=== PATIENT | female | born 1975 | race Caucasian/White ===

== ENCOUNTER 2023-11-21 09:04 | Outpatient (OUT) | payer BC, SELFPAY ==
[2023-11-21 09:24] LABS: Basophils Percent Auto 0.1 % (0.2-2.0); Eosinophils Percent Auto 0.3 % (0.9-7.0); Hematocrit 40.6 % (36.0-48.0); Hemoglobin 13.6 g/dL (12.0-16.0); Immature Granulocytes Abs Auto 0.04 10^3/uL (0.00-0.03); Immature Granulocytes Pct Auto 0.5 % (0.0-0.5); Lymphocytes Absolute Auto 3.1 10^3/uL (1.2-3.8); Lymphocytes Percent Auto 38.5 % (20.5-60.0); Mean Corpuscular HGB Conc 33.5 g/dL (29.9-35.2); Mean Corpuscular Hemoglobin 31.8 pg (26.7-34.0); Mean Corpuscular Volume 94.9 fL (81.0-99.0); Monocytes Absolute Auto 0.5 10^3/uL (0.3-0.8); Neutrophils Absolute Auto 4.4 10^3/uL (1.4-6.5); Neutrophils Percent Auto 54.6 % (43.0-75.0); Platelet Count 389 10^3/uL (150-450); Red Blood Count 4.28 10^6/uL (4.20-5.40); Red Cell Distribution Width 12.3 % (11.0-15.0)
[2023-11-21 09:33] LABS: Estimated Average Glucose 82 mg/dL; Glycohemoglobin A1C 4.5 % (4.5-6.2)
[2023-11-21 10:07] LABS: Alanine Aminotransferase 29 U/L (14-59); Albumin Globulin Ratio 0.9; Albumin Level 3.5 g/dL (3.4-5.0); Alkaline Phosphatase 78 U/L (46-116); Anion Gap 12.2; Aspartate Amino Transferase 27 U/L (15-37); BUN Creatinine Ratio 14.1; Bilirubin Total 0.7 mg/dL (0.2-1.0); Calcium 9.2 mg/dL (8.5-10.1); Carbon Dioxide 27.8 mmol/L (21.0-32.0); Chloride 101 mmol/L (98-107); Chol HDL Ratio 2.6; Cholesterol 201 mg/dL (<=200); Estimated GFR (African America >60 (>=60); Estimated GFR (Non-African Ame >60 (>=60); Free T3 2.04 pg/mL (2.18-3.98); Globulin 3.7 g/dL; Glucose 82 mg/dL (74-106); HDL Cholesterol 76 mg/dL (40-60); Sodium 137 mmol/L (136-145); Thyroid Stimulating Hormone 0.567 uIU/mL (0.358-3.740); Total Protein 7.2 g/dL (6.4-8.2); Triglycerides 75 mg/dL (<=150)
== END 2023-11-21 09:05 | disposition home or self-care (01) ==
PROVIDERS: PCP Family Medicine; Visit Provider Family Medicine
DX: Z00.00 Encounter for general adult medical examination without abnormal findings (principal)
CPT/HCPCS: 36415; 80053; 80061; 83036; 83540; 84436; 84443; 84481; 85025

== ENCOUNTER 2024-08-03 14:19 | Outpatient (RCR) | payer BC, SELFPAY | END 2024-08-24 14:49 | disposition home or self-care (01) | LOC: PT 14:19 | PROVIDERS: PCP Family Medicine; Visit Provider Family Medicine | DX: M62.838 Other muscle spasm (principal); M79.601 Pain in right arm; R51.9 Headache, unspecified | CPT/HCPCS: 20561; 97033; 97035; 97140; 97161 ==

== ENCOUNTER 2024-12-02 10:24 | Outpatient (RCR) | payer BC, SELFPAY | END 2024-12-10 07:07 | disposition home or self-care (01) | LOC: PT 10:24 | PROVIDERS: PCP Family Medicine; Visit Provider Family Medicine | DX: M54.12 Radiculopathy, cervical region (principal); R51.9 Headache, unspecified | CPT/HCPCS: 20561; 97035; 97140; 97161 ==

== ENCOUNTER 2025-04-19 13:59 | Outpatient (OUT) | payer BC, SELFPAY ==
--- OUTSIDE RECORDS SUMMARY | 2025-04-19 14:06 | XMS_ITS | Clinical Summary ---
Author Organization [facility] Address [address] [place], [place] [id number] Care Team Providers Care Communications Executive Name Role Phone Ken Santacruz MD Primary Care Provider [phone] Allergies No known active allergies Medications venlafaxine ER (EFFEXOR XR) 75 mg 24 hr capsule Take 75 mg by mouth once daily. 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 Last address used for calculation [address] [place], [place] [address]Daniela ARVIZU 10/24/2023 Comments No Sex and Gender Information Value Date Recorded Sex Assigned at Not on file Legal Sex Female 8:31 AM EST Gender Identity Not on file Sexual Orientation Not on file Last Filed Vital Signs Vital Sign Reading Time Taken Comments Blood Pressure 113/65 05/22/2010 4:46 PM EDT Pulse 94 05/22/2010 4:46 PM EDT Temperature 36.7 C (98 F) 05/22/2010 3:59 PM EDT Respiratory Rate 16 05/22/2010 4:46 PM EDT Oxygen Saturation 98% 05/22/2010 4:46 PM EDT Inhaled Oxygen Concentration - - Weight 65.8 kg (145 lb) 05/22/2010 9:37 AM EDT Height 170.2 cm (5' 7 ) 05/10/2010 10:36 AM EDT Body Mass Index 22.71 05/10/2010 10:36 AM EDT Plan of Treatment Health Maintenance Due Date Last Done Comments Anxiety Screening 1995 Depression Screening 1995 HIV Screening 1995 Hepatitis C Screening 1995 DTaP,Tdap,Td Vaccine (1 - Tdap) 1996 Hepatitis B Vaccine (1 of 3 - 19+ 3-dose series) 05/21 Cervical Cancer Screening [address] Colonography 2022 Cologuard (FIT-DNA) 2022 Colonoscopy 2022 Colorectal Cancer Screening 2022 Diabetes Screening 2022 Fecal Occult Blood 2022 Lipid Screening 2022 Sigmoidoscopy 2022 Influenza Vaccine (#1) 2025 07/18/2021 Medical Devices Implanted Type Area [employer] Programmer Device Identifier Shelf Expiration Date Model / Serial / Lot Mamm Style 15 339 Cc - [id number] Implanted:Qty : 1 on 05/22/2010 at [facility] Mammary / Breast Right: Breast [employer] BREAST DIV 02/19/2015 [id number] / [id number] / [id number] Description:[employer]LE [employer] E-FILLED BREAST IMPLANT STYLE 15, 339CC Mamm Style 15 339 Cc - [id number] Implanted:Qty : 1 on 05/22/2010 at [facility] Mammary / Breast Left: Breast [employer] BREAST DIV 02/19/2015 [id number] / [id number] / [id number] Description:[employer] E-FILLED BREAST IMPLANT STYLE 15, 339CC Insurance BLUE CARD PPO OOS Care Teams Communications Executive Relationship Specialty Start Date End Date Ken Santacruz MD PCP - General 04/23/10
--- OUTSIDE RECORDS SUMMARY | 2025-04-19 14:18 | XMS_ITS | CCD ---
Author Organization [facility] Care Team Providers Care Room Worker Name Role Phone Wili Santacruz MD Primary Care Provider [phone] AMANUEL, DR ROJO Admitting Unavailable KARASIK, DR ROJO Attending Unavailable WEST, DR JOSE ALFREDO Francois Consulting Unavailable HOY, DR RASHEED Primary Care Unavailable HOY, DR RASHEED Admitting Unavailable HOY, DR RASHEED Attending Unavailable HOY, DR RASHEED Consulting Unavailable HOY, DR RASHEED Primary Care Unavailable WEST, DR JOSE ALFREDO Francois Consulting Unavailable HOY, DR RASHEED Attending Unavailable HOY, DR RASHEED Consulting Unavailable HOY, DR RASHEED Primary Care Unavailable HOY, DR RASHEED Admitting Unavailable NEFCY, RAMO Consulting Unavailable HAY, DR SOLOMON Admitting Unavailable HAY, DR SOLOMON Attending Unavailable HOY, DR RASHEED Primary Care Unavailable JADA VIDES Consulting Unavailable KARASIK, DR ROJO Attending Unavailable KARASIK, DR ROJO Consulting Unavailable HOY, DR RASHEED Primary Care Unavailable KARASIK, DR ROJO Admitting Unavailable KARASIK, DR ROJO Attending Unavailable HOY, DR RASHEED Primary Care Unavailable KARGISSELK, DR ROJO Consulting Unavailable KARASIK, DR ROJO Admitting Unavailable WEST, DR JOSE ALFREDO Francois Consulting Unavailable Wili Santacruz Primary Care Physician [phone] Wili Santacruz MD Primary Care Provider [phone] Swapnil Infante Attending Unavailable Wili Santacruz MD Primary Care Provider [phone] Marcy LEHMAN Attending Unavailable WILI SANTACRUZ Primary Care Unavailable Allergies Allergy Classification Reported Allergen(s) Allergy Type Date of Onset Reaction(s) Facility (1 source) Chlorhexidine Drug Allergy 12-15-2013 [facility] Repository Medications Current Medications Medication Drug Class(es) Dates Sig (Normalized) Sig (Original) 24 hr desvenlafaxine succinate 100 mg extended release oral tablet (11 sources) Serotonin and Norepinephrine Reuptake Inhibitor Start: 05-27-2022 take 1 tablet by mouth once daily Pristiq 100 mg Tab-ER 100 mg = 1 tab(s), Oral, Daily, # 30 tab(s), Refills(s) 0 Start Date: 05/27/22 Status: Ordered hydrOXYzine hydrochloride 25 mg oral tablet (1 source) Antihistamine Start: 03-07-2024 End: 03-14-2024 take 1 tablet by mouth four times daily as needed for anxiety hydrOXYzine hydrochloride 25 mg Tab 25 mg = 1 tab(s), Oral, QID, PRN for anxiety, X 7 day(s), # 28 tab(s), Refills(s) 0, Pharmacy: [facility]/pharmacy #[id number], 170, cm, 03/07/24 18:52:00 EDT, Height/Length Dosing, 69, kg, 03/07/24 18:52:00 EDT, Weight Dosing Start Date: 03/07/24 Stop Date: 03/14/24 Status: Ordered ibuprofen 200 mg oral capsule (11 sources) Nonsteroidal Anti-inflammatory Drug Start: 05-27-2022 take 3 capsules by mouth three times daily ibuprofen 200 mg oral capsule See Instructions, 3 capsules three times daily, Refills(s) 0 Start Date: 05/27/22 Status: Ordered LORazepam 0.5 mg oral tablet (1 source) Benzodiazepine Start: 03-07-2024 End: 03-10-2024 take 0.25 mg by mouth twice daily LORazepam 0.5 mg Tab 0.25 mg = 0.5 tab(s), Oral, BID, X 3 day(s), # 3 tab(s), Refills(s) 0, Pharmacy: [facility]/pharmacy #[id number], 170, cm, 03/07/24 18:52:00 EDT, Height/Length Dosing, 69, kg, 03/07/24 18:52:00 EDT, Weight Dosing Start Date: 03/07/24 Stop Date: 03/10/24 Status: Ordered methocarbamol 500 mg oral tablet (6 sources) Muscle Relaxant Start: 11-04-2022 take 1 tablet by mouth three times daily as needed for pain methocarbamol 500 mg Tab 500 mg = 1 tab(s), Oral, TID, PRN as needed for pain, # 21 tab(s), Refills(s) 0, Pharmacy: [facility]/pharmacy #[id number], 170, cm, 11/04/22 7:51:00 EDT, Height/Length Dosing, 68, kg, 09/24/22 15:22:00 EST, Weight Dosing Start Date: 11/04/22 Status: Ordered Start: 09-03-2022 take 1 tablet by joan th three times daily as needed for pain methocarbamol 500 mg Tab 500 mg = 1 tab(s), Oral, TID, PRN as needed for pain, # 21 tab(s), Refills(s) 0, Pharmacy: [facility]/pharmacy #[id number], 170, cm, 09/03/22 8:26:00 EST, Height/Length Dosing, 67, kg, 07/22/22 13:16:00 EST, Weight Dosing Start Date: 09/03/22 Status: Ordered Start: 08-09-2022 take 1 tablet by joan th three times daily as needed for pain methocarbamol 500 mg Tab 500 mg = 1 tab(s), Oral, TID, PRN as needed for pain, # 21 tab(s), Refills(s) 0, Pharmacy: [facility]/pharmacy #[id number], 170, cm, 08/06/22 12:34:00 EST, Height/Length Dosing, 67, kg, 07/22/22 13:16:00 EST, Weight Dosing Start Date: 08/09/22 Status: Ordered 24 hr venlafaxine 75 mg extended release oral capsule (4 sources) Serotonin and Norepinephrine Reuptake Inhibitor take 1 capsule by mouth once daily venlafaxine ER (EFFEXOR XR) 75 mg 24 hr capsule Take 75 mg by mouth once daily. Active Comment on above: Take 75 mg by mouth once daily. Problems Active Problems Problem Classification Problem Date Documented Date Episodic/Chronic Anxiety disorders (13 sources) Anxiety; Translations: [Panic disorder without agoraphobia] Onset: 03-07-2024 05-27-2022 Chronic Headache; including migraine (11 sources) Migraine 05-27-2022 Chronic Headache; including migraine (4 sources) Headache; including migraine; Translations: [HEADACHE UNSPECIFIED] Onset: 05-08-2022 Heart valve disorders (11 sources) Mitral valve prolapse 05-27-2022 Chronic Malaise and fatigue (11 sources) Fatigue 05-27-2022 Episodic Other non-traumatic joint disorders (11 sources) Shoulder pain 05-27-2022 Episodic Other skin disorders (8 sources) Wrinkled skin; Translations: [Other specified disorders of the skin and subcutaneous tissue] Onset: 11-11-2014 Episodic Other upper respiratory disease (11 sources) Deviated nasal septum 05-27-2022 Episodic Residual codes; unclassified (1 source) Procedure related finding; Translations: [Encounter for cosmetic surgery] Episodic Residual codes; unclassified (11 sources) Insomnia 05-27-2022 Episodic Residual codes; unclassified (3 sources) Patient encounter status; Translations: [Encounter for cosmetic surgery] Episodic Residual codes; unclassified (1 source) Encounter for cosmetic surgery; Translations: [Encounter for cosmetic surgery] Onset: 12-27-2024 Episodic Spondylosis; intervertebral disc disorders; other back problems (11 sources) Degeneration of lumbar intervertebral disc 05-27-2022 Chronic Spondylosis; intervertebral disc disorders; other back problems (20 sources) Radiculopathy, cervical region; Translations: [Cervicalgia] Onset: 05-17-2022 Episodic Unclassified (3 sources) CONTACT W/AND (SUSP) EXPOS COVID-19; Translations: [CONTACT W/AND (SUSP) EXPOS COVID-19] Onset: 07-07-2021 Past or Other Problems Problem Classification Problem Date Documented Date Episodic/Chronic Abdominal pain (4 sources) Pelvic and perineal pain; Translations: [PELVIC AND PERINEAL PAIN] Onset: 11-12-2021 Episodic Immunizations and screening for infectious disease (1 source) Encounter for screening for human papillomavirus (HPV); Translations: [ENC SCREENING HUMAN PAPILLOMAVIRUS] Onset: 11-07-2021 Episodic Nonmalignant breast conditions (4 sources) Congenital hypoplasia of breast; Translations: [Hypoplasia of breast] Onset: 05-02-2010 05-02-2010 Episodic Other screening for suspected conditions (not mental disorders or infectious disease) (8 sources) Encounter for screening mammogram for malignant neoplasm of breast; Translations: [Encounter for screening for malignant neoplasm of cervix] Onset: 11-06-2021 Episodic Other skin disorders (1 source) Other specified disorders of the skin and subcutaneous tissue; Translations: [Wrinkles] Onset: 11-11-2014 Episodic Ovarian cyst (1 source) Other ovarian cyst, right side; Translations: [OTHER OVARIAN CYST RIGHT SIDE] Onset: 11-15-2021 Episodic Residual codes; unclassified (4 sources) History of cosmetic plastic surgery; Translations: [Other specified postprocedural states] Onset: 05-31-2010 05-31-2010 Episodic Unclassified (1 source) CONTACT W/AND (SUSP) EXPOS COVID-19; Translations: [CONTACT W/AND (SUSP) EXPOS COVID-19] Onset: 07-04-2021 Results Test Name Value Interpretation Reference Range Facility CNOVon 12-27-2024 CNOV Office Visit (PLASAV ) WOJCIECHFAMILIA Elena ([id number]) 1975 F Date Time Provider Department 12/27/24 10:00 AM Marcy LEHMAN During your visit today, we recorded the following information about you: Marcy Lehman MD 12/27/2024 10:20 AM Signed Familia's chief complaint: forehead lines, frown lines, and lines around the eyes. Injection history: repeat patient. I discussed with the patient the treatment procedure, the treatment options, the risk profile, the limited duration and longevity, the difference between botox and fillers. The patient consents to the procedure and wishes to proceed. UNIVERSAL PROTOCOL / SAFETY CHECKLIST Procedure to be Performed: Botox Sign In: A Moment of CARE was completed. Appropriate PPE (Personal Protective Equipment) worn by all providers involved with the procedure. Special equipment not required. Patient/Surrogate Stated/Verified: Patient name, Date of , Relevant allergies, and The intended procedure Time Out: Relevant labs, photos, and/or imaging studies are not applicable. Intended patient and procedure match the source document(s) (e.g. consent, HANDP, associated studies [imaging, pathology]) are not applicable. Consent obtained and matches the intended procedure. Correct side/site has been marked and visible. Medications required for this procedure are verified. Fire risk assessed and is not applicable. Implants: are not applicable. Sign Out: Specimens not collected. All instruments, equipment, possible retained foreign bodies are accounted for. The post-procedure plan of care has been communicated to the patient or surrogate. Today's Treatment: Plan: Botox alone Area: Forehead, Frown lines, and Ronna orbital area - squaxin's feet Dosing: Forehead: 2-4-4-4-2 = 16 units Central forehead 4 units x 1 = 4 units Glabella 4 units x 3 = 12 units CF 4 units x 2 = 8 units Total: 40 units Botox ([id number] EXP 05/2026) Familia tolerated the treatment well, post-treatment instructions given. Follw-up: as needed Charge: $560 jamie rewards: -$100 Total due: $460 (Z41.1) Encounter for cosmetic surgery (primary encounter diagnosis) (L98.8) Wrinkles Allergies As of Date: 12/27/2024 (No Known Allergies) Date Reviewed: 10/24/2023 Reviewed by: Shanta Valdivia RN - Fully Assessed Primary Visit Diagnosis:Encounter for cosmetic surgery [Z41.1] Other Visit Diagnosis:Wrinkles [L98.8] Prescriptions as of 12/27/2024 - venlafaxine ER (EFFEXOR XR) 75 mg 24 hr capsule Take 75 mg by mouth once daily. 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 She states that she was on her way to work when she noted that she started to have an anxiety attack. She states that she has had these in the past and this feels exactly like it in the past. She states that she started get some shortness of breath and had difficulty breathing which is why she decided to present to the ED. She was unable to drive her car and had to have someone come and pick her up from her family. She denies any chest pain, abdominal pain, nausea, vomiting, diarrhea, fevers, body aches, chills. Review of Systems No other aggravating or relieving factors no other associated symptoms no other prior treatments or complaints. Family: Reviewed and noncontributory Social: lives at home Review of systems negative unless otherwise specified in the HPI. Physical Exam Vitals & Measurements T: 36.5 ?C(Oral) HR: 87(Peripheral) RR: 20 BP: 152/88 SpO2: 98% HT: 170 cm WT: 69 kg BMI: 23.88 General: The patient appears anxious and in acute distress. Patient is resting comfortably on cart. Skin: Warm, dry, no pallor noted. Head: Normocephalic, atraumatic Neck: No JVD Eye: PERRLA, EOMI ENT: Moist mucus membranes Cardiovascular: Regular rate and rhythm. Normal peripheral perfusion Respiratory: CTA bilaterally. No respiratory distress no accessory muscle use no obvious audible wheezing Chest Wall: no deformity Musculoskeletal: normal ROM, no deformity, no swelling GI: Soft no obvious distention. No rebound or rigidity. No guarding. No tenderness. Neurological: A&O moves all extremities equal strength and symmetry Psychiatric: Cooperative and appropriate Medical Decision Making Patient is a 48-year-old female with PMH of anxiety that presents today for evaluation of possible panic attack. She has had these in the past and this feels exactly like it with her shortness of breath and difficulty breathing. On exam patient does appear anxious and in acute distress with tachypnea and tachycardia. CTA bilateral lung natarajan. After dose of Ativan oral in the ED she is feeling much better with almost complete resolution of her symptoms. I did provide her with a dose of hydroxyzine 50 mg here in the ED as well which made her feel increasingly better. I did recommend to the patient that we evaluate with lab work, chest x-ray, and EKG, however, the patient wants to hold off on any further workup at this time. Provided her with to go dose for hydroxyzine as well as Ativan and sent her prescriptions to her pharmacy for these. She will follow-up with her PCP first thing tomorrow for further evaluation and management. Return to ED precautions were reviewed with the patient at length. Assessment/Plan Anxiety (F41.9: Anxiety disorder, unspecified) Panic attack (F41.0: Panic disorder [episodic paroxysmal anxiety]) Orders: hydrOXYzine, 50 mg = 2 tab(s), Tab, Oral, Once, Stop date 03/07/24 19:45:00 EDT, STAT, Start date 03/07/24 19:45:00 EDT, 03/07/24 19:45:00 EDT hydrOXYzine, 25 mg = 1 tab(s), Tab, Oral, Once, Stop date 03/07/24 20:21:00 EDT, STAT, Start date 03/07/24 20:21:00 EDT, 03/07/24 20:21:00 EDT hydrOXYzine, 25 mg = 1 tab(s), Oral, QID, PRN for anxiety, X 7 day(s), # 28 tab(s), Refills(s) 0, Pharmacy: [facility]/pharmacy #[id number], 170, cm, 03/07/24 18:52:00 EDT, Height/Length Dosing, 69, kg, 03/07/24 18:52:00 EDT, Weight Dosing lorazepam, 0.25 mg = 0.5 tab(s), Oral, BID, X 3 day(s), # 3 tab(s), Refills(s) 0, Pharmacy: [facility]/pharmacy #[id number], 170, cm, 03/07/24 18:52:00 EDT, Height/Length Dosing, 69, kg, 03/07/24 18:52:00 EDT, Weight Dosing lorazepam, 0.5 mg = 1 tab(s), Tab, Oral, Once, Stop date 03/07/24 19:07:00 EDT, STAT, Start date 03/07/24 19:07:00 EDT, 03/07/24 19:07:00 EDT lorazepam, 1 mg = 1 tab(s), Tab, Oral, Once, Stop date 03/07/24 20:21:00 EDT, STAT, Start date 03/07/24 20:21:00 EDT, 03/07/24 20:21:00 EDT Medications Administered Given Ativan 0.5 mg Tab, 0.5 mg, Oral hydrOXYzine hydrochloride 25 mg Tab, 25 mg, Oral hydrOXYzine hydrochloride 25 mg Tab, 50 mg, Oral LORazepam 1 mg Tab, 1 mg, Oral Disposition Plan Patient Discharge Condition Stable, improved Discharge Disposition Home Discharge Prescription List Prescriptions hydrOXYzine hydrochloride 25 mg Tab, 25 mg= 1 tab(s), Oral, QID, PRN LORazepam 0.5 mg Tab, 0.25 mg= 0.5 tab(s), Oral, BID Follow-up With When Contact Information Wili Santacruz In 3 days 03/10/2024 EDT [address] [facility] [place] [address]- Business (1) Additional Instructions: Patient Education Panic Attack Attestation Patient seen and evaluated by the physician janitorial assistant. Attending physician was present in the emergency department and supervised care. This visit was performed by both the (more content not included)... Normal [facility] Comment on above: Result Comment: Elec tronically Signed By: Desmond Henley PA-C\.br\Date and Time Signed: 03/07/24 23:48 EDT\.br\Electronically Co-Signed By: Desmond Henley PA-C\.br\Date and Time Co-Signed: 03/07/24 23:49 EDT\.br\Electronically Co-Signed By: Adolfo Milner DO\.br\Date and Time Co-Signed: 03/08/24 02:33 EDT ED Clinical Summaryon 2023 ED Clinical Summary ED Clinical Summary [place] [id number] ED Clinical Summary Person Information Name: FAMILIA JEFFREY [place] Age: 48 Years : 1975 Sex: Female Language: Macanese PCP: Wili Santacruz MD Marital Status: Single Visit Id: Visit Reason: Anxiety; PANIC ATTACK Speciality: Acuity: 2 Enc Type: Emergency Med Service: Emergency Arrival: 03/07/2024 18:37:02 Discharge: 03/07/2024 20:30:55 LOS: 000 01:53 Checkin: 03/07/2024 18:37:02 Checkout: 03/07/2024 20:30:55 Dispo Type: Home (Routine DC) EVENTS: Event Name Event Status Request Date/Time Start Date/Time Complete Date/Time Arrive Complete 03/07/2024 18:37:02 03/07/2024 18:37:02 03/07/2024 18:37:02 Document Home Meds Request 03/07/2024 18:37:02 Triage Complete 03/07/2024 18:37:02 03/07/2024 18:52:00 03/07/2024 18:52:00 Bed Assign Complete 03/07/2024 18:52:28 03/07/2024 18:52:28 03/07/2024 18:52:28 Dr Exam Complete 03/07/2024 18:52:28 03/07/2024 19:01:15 03/07/2024 19:01:15 RN Exam Complete 03/07/2024 18:52:28 03/07/2024 19:48:19 03/07/2024 19:48:19 Registration Complete 03/07/2024 19:01:15 03/07/2024 19:06:29 03/07/2024 19:06:29 Reg Complete Request 03/07/2024 19:06:29 Reg Bed Request Complete 03/07/2024 19:06:29 03/07/2024 19:06:29 03/07/2024 19:06:29 Meds Admin Complete 03/07/2024 19:07:33 03/07/2024 19:10:39 Dr Exam Complete 03/07/2024 19:17:50 03/07/2024 19:17:50 03/07/2024 19:17:50 Registration Request 03/07/2024 19:17:50 Meds Admin Complete 03/07/2024 19:46:04 03/07/2024 19:49:29 Meds Admin Complete 03/07/2024 20:21:38 03/07/2024 20:30:06 Discharge Complete 03/07/2024 20:23:38 03/07/2024 20:30:59 03/07/2024 20:30:59 Transfer Complete 03/07/2024 20:30:59 03/07/2024 20:30:59 03/07/2024 20:30:59 ADDRESS: [place] [facility] [id number] PHYS DOC NOTES: MEDICAL INFORMATION: Prescriptions Given: New Medications [id number], [address] [place], [place] [id number], [phone] hydrOXYzine (hydrOXYzine hydrochloride 25 mg Tab) 1 Tablets By Mouth 4 times a day as needed for anxiety for 7 Days. Refills: 0. lorazepam (LORazepam 0.5 mg Tab) 0.5 Tablets By Mouth 2 times a day for 3 Days. Refills: 0. Medications to Continue with No Changes Other Medications desvenlafaxine (Pristiq 100 mg Tab-ER) 1 Tablets By Mouth every day. ibuprofen (ibuprofen 200 mg oral capsule) 3 capsules three times daily. methocarbamol (methocarbamol 500 mg Tab) 1 Tablets By Mouth 3 times a day as needed as needed for pain. Refills: 0. PATIENT EDUCATION INFORMATION: Instructions: Panic Attack Follow up: With: Address: When: Wili Santacruz [address] [place] [address], [facility] [place] [address] Business (1) In 3 days 03/10/2024 DIAGNOSIS: Anxiety; Panic attack Normal [facility] ED Patient Summaryon 024 ED Patient Summary ED Patient Summary [address] [address] Patient Discharge Instructions Person Information Name: FAMILIA JEFFREY Age: 48 Years Arrival Date: 03/07/2024 18:37:02 Discharge Diagnosis: Anxiety; Panic attack Primary Care Physician: Wili Santacruz MD Provider Information Primary Provider: Adolfo Milner DO Advanced Paper Core Machine Operator:Desmond Henley PA-C The exam and treatment you received in the Emergency Department were for an urgent problem and are not intended as complete care. It is important that you follow up with a doctor, nurse practitioner, or physician?s janitorial assistant for ongoing care. If your symptoms become worse or you do not improve as expected and you are unable to reach your usual health care provider, you should return to the Emergency Department. We are available 24 hours a day. FAMILIA JEFFREY has been given the following list of patient education materials, prescriptions and follow-up instructions: Follow-up Instructions: With: Address: When: Wili Santacruz [facility], [address] [place] [id number] Business (1) In 3 days 03/10/2024 In the event that this physician does not participate in your insurance network, please consult with your insurance company to find a nearby participating provider. Patient Education Materials: Panic Attack A MESSAGE TO ALL PATIENTS REGARDING OPIOIDS PRESCRIPTION OPIOIDS: WHAT YOU NEED TO KNOW Prescription opioids can be used to help relieve [id number] pain and are often prescribed following a surgery or injury, or for certain health conditions. These medications can be an important part of the treatment but also come with serious risks. It is important to work with your healthcare provider to make sure you are getting the safest, most effective care. WHAT ARE THE RISKS AND SIDE EFFECTS OF OPIOID USE? Prescription opioids carry serious risks of addiction and overdose, especially with prolonged use. An opioid overdose, often marked by slowed breathing, can cause sudden . The use of prescription opioids can have a number of side effects as well, even when taken as directed: ? Tolerance?meaning you might need to take more of the medication for the same pain relief ? Physical dependence?meaning you have symptoms of withdrawal when a medication is stopped ? Increased sensitivity to pain ? Constipation ? Nausea, vomiting, and dry mouth ? Sleepiness and dizziness ? Confusion ? Depression ? Low levels of testosterone that can result in lower sex drive, energy, and strength ? Itching and sweating RISKS ARE GREATER WITH: ? History of drug misuse, substance use disorder, or overdose ? Mental health conditions (such as depression or anxiety) ? Sleep apnea ? Older age (65 years and older) ? Avoid alcohol while taking prescription opioids. Also, unless specifically advised by your health care provider, medications to avoid include: ? Benzodiazepines (such as Xanax or Valium) ? Muscle relaxants (such as Soma or Flexeril) ? Hypnotics (such as Ambien or Lunesta) ? Other prescription opioids KNOW YOUR OPTIONS Talk to your health care provider about ways to manage your pain that don?t involve prescription opioids. Some of these options may actually work better and have fewer risks and side effects. Options may include: ? Pain relievers such as acetaminophen, ibuprofen, and naproxen ? Some medication that are also used for depression or seizures ? Physical therapy and exercise ? Cognitive behavioral therapy, a psychological, goal-directed approach, in which patients learn how to modify physical, behavioral, and emotional triggers of pain and stress. IF YOU ARE PRESCRIBED OPIOIDS FOR PAIN: ? Never take opioids in greater amounts or more often than prescribed. ? Follow up with your primary health care provider. o Work together to create a plan on how to manage your pain. o Talk about ways to help manage your pain that don?t involve prescription opioids. o Talk about any and all concerns and side effects. ? Help prevent misuse and abuse o Never sell or share prescription opioids. o Never use another person?s prescription opioids. ? Store prescription opioids in a secure place and out of reach of others (this may include visitors, children, friends, and family). ? Safely dispose of unused prescription opioids: Find your community drug take-back program or your pharmacy mail-back program, or flush them down the toilet, following guidance from the Food and Drug Administration (www.fda.gov/Drugs/Res ourcesForYou). ? Visit www.cdc.gov/drugoverdo se to learn about the risks of opioids abuse and overdose. ? If you believe you may be struggling with addiction, tell your health point of care technician and ask for guidance or call [employer]?S National Helpline at 0-595-898-QJXN. (more content not included)... Normal [facility] MRI CSPINE WO CONon 05-17-20 MRI CSPINE WO CON EXAMINATION: MRI CSPINE WO CON HISTORY: Neck pain COMPARISON: No relevant comparison available. TECHNIQUE: A variety of imaging planes and parameters were utilized for visualization of suspected pathology. FINDINGS: CRANIOCERVICAL AREA: Normal foramen magnum with no Chiari malformation. PARASPINAL AREA: Normal with no visible mass. BONES: Normal alignment with no acute fracture or spondylolisthesis. No bone edema CORD: Normal caliber, contour, and signal intensity. CERVICAL DISC LEVELS: C2-C3: No significant disc/facet abnormality, spinal stenosis, or foraminal stenosis. C3-C4: Mild diffuse disc/osteophyte complex. No central or foraminal stenosis C4-C5: No significant disc/facet abnormality, spinal stenosis, or foraminal stenosis. C5-C6: Mild to moderate diffuse disc/osteophyte complex. No definite central canal or foraminal stenosis C6-C7: Mild to moderate diffuse disc/osteophyte complex. No definite central canal or foraminal stenosis C7-T1:. Mild posterior disc/osteophyte complex. No definite central or foraminal stenosis IMPRESSION: Mild diffuse degenerative discogenic changes. No definite central or foraminal stenosis Electronically authenticated by: JOSE ALFREDO ROMO Date: 2022-05-17 21:53 Normal [facility] CBC AUTO DIFFon 05-08-2022 BASO # 0.0 103/ul Normal 0.0-0.1 [facility] Comment on above: Performed By: #### C BC #### [facility] [address] [place] [address] Dr. Adis Poe Basophils/100 WBC (Bld) 0.4 % Normal 0.2-2.0 [facility] Comment on above: Performed By: #### C BC #### [facility] [address] [place] [address] Dr. Adis Poe EO # 0.0 103/ul Normal 0.0-0.7 [facility] Comment on above: Performed By: #### C BC #### [facility] [address] [place] [address] Dr. Adis Poe Eosinophils/100 WBC (Bld) 0.3 % Critically low 0.9-7.0 [facility] Comment on above: Performed By: #### C BC #### [facility] [address] [place] [address] Dr. Adis Poe Erythrocyte distribution width (RBC) [Ratio] 12.7 % Normal 11.0-15.0 [facility] Comment on above: Performed By: #### C BC #### [facility] [address] [place] [address] Dr. Adis Poe Hematocrit (Bld) [Volume fraction] 39.4 % Normal 36.0-48.0 [facility] Comment on above: Performed By: #### C BC #### [facility] [address] [place] [address] Dr. Adis Poe Hemoglobin (Bld) [Mass/Vol] 13.4 g/dL Normal 12.0-16.0 [facility] Comment on above: Performed By: #### C BC #### [facility] [address] [place] [address] Dr. Adis Poe IG # 0.03 10e3/ul Normal 0.00-0.03 [facility] Comment on above: Performed By: #### C BC #### [facility] [address] [place] [address] Dr. Adis Poe IG % 0.3 % Normal 0.0-0.5 [facility] Comment on above: Performed By: #### C BC #### [facility] [address] [place] [address] Dr. Adis Poe LYMPH # 2.5 103/ul Normal 1.2-3.8 [facility] Comment on above: Performed By: #### C BC #### [facility] [address] [place] [address] Dr. Adis Poe Lymphocytes/100 WBC (Bld) 25.8 % Normal 20.5-60.0 [facility] Comment on above: Performed By: #### C BC #### [facility] [address] [place] [address] Dr. Adis Poe MANUAL DIFF REQ NO Normal [facility] Comment on above: Performed By: #### C BC #### [facility] [address] [place] [address] Dr. Adis Poe MCH (RBC) [Entitic mass] 32.2 pg Normal 26.7-34.0 [facility] Comment on above: Performed By: #### C BC #### [facility] [address] [place] [address] Dr. Adis Poe MCHC (RBC) [Mass/Vol] 34.0 g/dL Normal 29.9-35.2 [facility] Comment on above: Performed By: #### C BC #### [facility] [address] [address] [address] Adis Poe MCV (RBC) [Entitic vol] 94.7 fL Normal 81.0-99.0 [facility] Comment on above: Performed By: #### C BC #### [facility] [address] [place] [address] Dr. Adis Poe MONO # 0.6 103/ul Normal 0.3-0.8 [facility] Comment on above: Performed By: #### C BC #### [facility] [address] [place] [address] Dr. Adis Poe Monocytes/100 WBC (Bld) 5.7 % Normal 1.7-12.0 [facility] Comment on above: Performed By: #### C BC #### [facility] [address] [place] [address] Dr. Adis Poe NEUT # 6.6 103/ul Critically high 1.4-6.5 [facility] Comment on above: Performed By: #### C BC #### [facility] [address] [place] [address] Dr. Adis Poe Neutrophils/100 WBC (Bld) 67.5 % Normal 43.0-75.0 [facility] Comment on above: Performed By: #### C BC #### [facility] [address] [place] [address] Dr. Adis Poe Platelet mean volume (Bld) [Entitic vol] 8.4 fL Critically low 9.5-13.5 [facility] Comment on above: Performed By: #### C BC #### [facility] [address] [place] [address] Dr. Adis Poe PLT 351 103/ul Normal 150-450 [facility] Comment on above: Performed By: #### C BC #### [facility] [address] [place] [address] Dr. Adis Poe RBC 4.16 106/ul Critically low 4.20-5.40 [facility] Comment on above: Performed By: #### C BC #### [facility] [address] [place] [address] Dr. Adis Poe WBC 9.8 103/ul Normal 4.0-11.0 [facility] Comment on above: Performed By: #### C BC #### [facility] [address] HEAD WO CONon 05-08-2022 CT HEAD WO CON EXAMINATION: CT HEAD WO CON HISTORY: HEADACHE this morning and tingling of the left hand. COMPARISON: None. TECHNIQUE: CT examination of the head without IV contrast. Sagittal and coronal reconstructions were obtained. Dose reduction techniques were achieved by using automated exposure control and/or adjustment of mA and/or kV according to patient size and/or use of iterative reconstruction technique. FINDINGS: The ventricles are not enlarged. The right lateral ventricle slightly larger than the left and the third ventricles in the midline and this may be within normal variation. The sylvian fissures and cortical sulci are unremarkable. There is no evidence of an intracranial hemorrhage, mass lesion or apparent acute infarct. No apparent abnormality is seen in the deep white matter. Benign calcifications are seen in the anterior falx, choroid plexus and pineal complex. The cerebellum and visualized brainstem are intact. The visualized paranasal sinuses are clear. There is good aeration of the middle ears and the mastoid sinuses. There is no apparent skull fracture. IMPRESSION: There is no evidence of an intracranial hemorrhage, mass lesion or apparent acute infarct. There is some asymmetry of the lateral ventricles in comparison with a previous study is recommended to verify stability of these findings. The visualized paranasal sinuses are clear. There is no evidence of a skull fracture. If the patient's symptoms persist and further evaluation is clinically indicated then perhaps an MRI study would be helpful. Electronically authenticated by: RAMO EVANGELISTA Date: 2022-05-08 19:35 Normal [facility] PROF CHEM 8 (BAS METB)on Anion gap [Moles/Vol] 12.3 mmol/L Normal [facility] Comment on above: Performed By: #### B GAGE FULLERTRDANIELAN #### [facility] [address] [address] [address] Adis Poe Calcium [Mass/Vol] 9.1 mg/dL Normal 8.5-10.1 [facility] Comment on above: Performed By: #### B JONNY HSTROPN #### [facility] [address] [address] [address] Adis Poe Chloride [Moles/Vol] 104 mmol/L Normal 98-107 [facility] Comment on above: Performed By: #### B MP, HSTROPN #### [facility] [address] [address] [address] Adis Poe CO2 [Moles/Vol] 25.2 mmol/L Normal 21.0-32.0 [facility] Comment on above: Performed By: #### B MP, HSTROPN #### [facility] [address] [address] [address] Adis Poe Creatinine [Mass/Vol] 0.86 mg/dL Normal 0.55-1.02 [facility] Comment on above: Performed By: #### B MP, HSTROPN #### [facility] [address] [address] [address] Adis Poe EGFR-AF JAPANESE >60 Normal >=60 [facility] Comment on above: Performed By: #### B MP, HSTROPN #### [facility] [address] [address] [address] Adis Poe EGFR-NON AF JAPANESE >60 Normal >=60 [facility] Comment on above: Performed By: #### B MP, HSTROPN #### [facility] [address] [address] [address] Adis Poe Glucose [Mass/Vol] 86 mg/dL Normal 74-106 [facility] Comment on above: Performed By: #### B MP, HSTROPN #### [facility] [address] [address] [address] Adis Poe Potassium [Moles/Vol] 3.5 mmol/L Normal 3.5-5.1 [facility] Comment on above: Performed By: #### B MP, HSTROPN #### [facility] [address] [address] [address] Adis Poe Sodium [Moles/Vol] 138 mmol/L Normal 136-145 [facility] Comment on above: Performed By: #### B MP, HSTROPN #### [facility] [address] [address] [address] Adis Poe Urea nitrogen [Mass/Vol] 16.0 mg/dL Normal 7.0-18.0 [facility] Comment on above: Performed By: #### B MP, HSTROPN #### [facility] [address] [address] [address] Adis Poe Urea nitrogen/Creatinine [Mass ratio] 18.6 mg/mg Normal [facility] Comment on above: Performed By: #### B MP, HSTROPN #### [facility] [address] [address] [address] Adis Poe TROPONIN, HIGH SENSITIVITYon 05-08-2022 HSTROP 4.0 pg/mL Normal 4.0-51.3 [facility] Comment on above: Result Comment: CUT- OFF POINTS HAVE BEEN ESTABLISHED BASED ON THE FOURTH UNIVERSAL DEFINITIONS OF MYOCARDIAL INFARCTION. THE UPPER REFERENCE LIMIT (URL) OF TROPONIN, DEFINED THE 99TH PERCENTILE OF cTnI DISTRIBUTION IN A REFERENCE POPULATION, HAS BEEN CONFIRMED THE DECISION THRESHOLD FOR [place] DIAGNOSIS. Performed By: #### B MP, HSTROPN #### [facility] [address] [place] [address] Dr. Adis Poe MG MAMM SCREEN 3D LY CADon 11-16-2021 MG MAMM SCREEN 3D LY CAD Patient: FAMILIA JEFFREY Exam Date: 11/16/2021 : 1975 Gender:F Ordering : DR ALIA VITAL . Admission #: [id number] Family : Order #: [id number] CLICK HERE TO VIEW EXAM RADIOLOGY REPORT PROCEDURE: MAMMOGRAM SCREENING 3D BILATERAL CAD COMPARISON: None. INDICATIONS: Screening mammography Calculator Name NCI Breast Cancer Risk Assessment Tool 5 Year Breast Cancer Risk 0.60% Lifetime Breast Cancer Risk 8.00% Personal Breast Cancer No Personal Ovarian Cancer No Treatments None Family Cancers None LOCATION: [facility] BREAST COMPOSITION: Scattered areas fibroglandular density. FINDINGS: DIAGNOSTIC CATEGORY 2--BENIGN FINDING: Scattered benign-appearing calcifications are present. Scattered benign-appearing lymph nodes are present. This exam includes additional mammographic views for implant evaluation and shows no visible implant abnormality. RIGHT BREAST: No significant suspicious finding. LEFT BREAST: No significant suspicious finding. RECOMMENDATIONS: ROUTINE MAMMOGRAM AND CLINICAL EVALUATION IN 12 MONTHS. PLEASE NOTE: A NORMAL MAMMOGRAM DOES NOT EXCLUDE THE POSSIBILITY OF BREAST CANCER. A CLINICALLY SUSPICIOUS PALPABLE LUMP SHOULD BE BIOPSIED. Dictated by: Jose Alfredo Rmoo MD on 11/16/2021 at 14:02 Approved by: Jose Alfredo Romo MD on 11/16/2021 at 14:03 Normal [facility] US PELVIS AND TRANSVAGon US PELVIS AND TRANSVAG EXAMINATION: US PELVIS AND TRANSVAG HISTORY: Pelvic and perineal pain COMPARISON: 10/27/2019 FINDINGS: Transabdominal and transvaginal images The uterus is surgically absent The right ovary is normal in size, contour and echotexture measuring 2.2 x 2.3 x 1.9 cm. Normal color Doppler flow. PSV/EDV: 7.1/3.3 cm/s Normal resistive index of 0.53. The left ovary measures 3.6 x 3.7 x 2.5 cm. Area of anechoic echogenicity measuring 3.0 x 3.1 x 2.5 cm, a simple cyst is favored. PSV/EDV: 6.0/3.6 cm/s. Normal color and Doppler flow. No free fluid IMPRESSION: 3.1 cm left ovarian simple cyst Electronically authenticated by: JOSE ALFREDO ROMO Date: 2021-11-12 10:21 [facility] PAP ACOG PANEL 2: 30 to 65on 11-10-2021 . . Normal [facility] Comment on above: Result Comment: Perf ormed at: WB Performed By: #### [id number] #### [facility] [address] [address] [address] Adis Poe Age Gdln ACOG Testing 30-65 Normal [facility] Comment on above: Performed By: #### [id number] #### [facility] [address] [address] [address] Adis Poe DIAGNOSIS: Comment Normal [facility] Comment on above: Result Comment: NEGA TIVE FOR INTRAEPITHELIAL LESION OR MALIGNANCY. Performed at: WB Performed By: #### [id number] #### [facility] [address] [place] [address] Dr. Adis Poe HPV Aptima Negative Normal Negative [facility] Comment on above: Result Comment: This nucleic acid amplification test detects fourteen high-risk HPV types (16,18,31,33,35,39,45,51,52,56,58,59,66,68) without differentiation. Performed at: =G Performed By: #### [id number] #### [facility] [address] [address] [address] Adis Poe Methodology: Comment Normal [facility] Comment on above: Result Comment: This liquid based ThinPrep(R) pap test was screened with the use of an image guided system. Performed at: WB Performed By: #### [id number] #### [facility] [address] [place] [address] Dr. Adis Poe Note: Comment Normal [facility] Comment on above: Result Comment: The Pap smear is a screening test designed to aid in the detection of premalignant and malignant conditions of the uterine cervix. It is not a diagnostic procedure and should not be used as the sole means of detecting cervical cancer. Both false-positive and false-negative reports do occur. . Performed at: WB Performed By: #### [id number] #### [facility] [address] [place] [address] Dr. Adis Poe Performed by: Comment Normal [facility] Comment on above: Result Comment: Carola Pham, Shift Nurse Manager (ASCP) Performed at: WB Performed By: #### [id number] #### [facility] [address] [place] [address] Dr. Adis Poe Specimen adequacy: Comment Normal [facility] Comment on above: Result Comment: Sati sfactory for evaluation. No endocervical component is identified. Performed at: WB Performed By: #### [id number] #### [facility] [address] [place] [address] Dr. Adis Poe Covid-19 PCR ([facility])on 06-25 SARS-CoV-2 (COVID-19) RNA MARIANO+probe Ql (Unsp spec) Not detected Normal NOT DETECTED [facility] Comment on above: Result Comment: This test is not yet approved or cleared by the [place] FDA. When there are no FDA-approved or cleared tests available, and other criteria are met, FDA can make tests available under an emergency access mechanism called an Emergency Use Authorization (EUA). The EUA for this test is supported by the Recreation Supervisor of Health and Human Service's (HHS's) declaration that circumstances exist to justify the emergency use of in vitro diagnostics for the detection and/or diagnosis of the virus that causes COVID-19. This EUA will remain in effect (meaning this test can be used) for the duration of the COVID-19 declaration justifying emergency of IVDs, unless it is terminated or revoked by FDA (after which the test may no longer be used). When diagnostic testing is negative, the possibility of a false negative should be considered in the context of a patient's recent exposures and the presence of clinical signs and symptoms consistent with SARS-CoV-2. Performed By: #### C [facility] #### [facility] [address] [place] [address] Dr. Adis Poe Vital Signs Date Time Vital Sign Value Performing Clinician Faci lity 03-07-2024 20:30-0400 Diastolic blood pressure 85 mm[Hg] [facility] 03-07-2024 20:30-0400 Systolic blood pressure 146 mm[Hg] [facility] 03-07-2024 19:48-0400 Body temperature 97.7 [degF] [facility] 03-07-2024 19:48-0400 Diastolic blood pressure 88 mm[Hg] [facility] 03-07-2024 19:48-0400 Heart rate 87 /min [facility] 03-07-2024 19:48-0400 Respiratory rate 20 /min [facility] 03-07-2024 19:48-0400 SaO2% (BldA) [Mass fraction] 98 % [facility] 03-07-2024 19:48-0400 Systolic blood pressure 152 mm[Hg] [facility] 03-07-2024 18:49-0400 Body temperature 98.24 [degF] [facility] 03-07-2024 18:49-0400 Diastolic blood pressure 105 mm[Hg] [facility] 03-07-2024 18:49-0400 Heart rate 110 /min [facility] 03-07-2024 18:49-0400 Respiratory rate 28 /min [facility] 03-07-2024 18:49-0400 SaO2% (BldA) [Mass fraction] 100 % [facility] 03-07-2024 18:49-0400 Systolic blood pressure 175 mm[Hg] [facility] 12-09-2022 12:37-0400 Diastolic blood pressure 94 mm[Hg] Ashia Brito [facility] 12-09-2022 12:37-0400 Heart rate 92 /min Ashia Brito [facility] 12-09-2022 12:37-0400 Mean blood pressure 110 mm[Hg] Ashia Brito [facility] 12-09-2022 12:37-0400 Respiratory rate 12 /min Ashia Brito [facility] 12-09-2022 12:37-0400 Systolic blood pressure 142 mm[Hg] Ashia Brito [facility] 11-04-2022 08:38-0400 Heart rate 95 /min Miki Paez [facility] 11-04-2022 08:38-0400 SaO2% (BldA) [Mass fraction] 100 % Miki Paez [facility] 11-04-2022 08:38-0400 Diastolic blood pressure 87 mm[Hg] Miki Paez [facility] 11-04-2022 08:38-0400 Mean blood pressure 101 mm[Hg] Miki Jeannine [facility] 11-04-2022 08:38-0400 Systolic blood pressure 131 mm[Hg] Miki Jeannine [facility] 11-04-2022 08:38-0400 Respiratory rate 16 /min Miki Jeannine [facility] 11-04-2022 08:28-0400 Diastolic blood pressure 68 mm[Hg] Miki Jeannine [facility] 11-04-2022 08:28-0400 Heart rate 84 /min Miki Jeannine [facility] 11-04-2022 08:28-0400 Respiratory rate 16 /min Miki Jeannine [facility] 11-04-2022 08:28-0400 SaO2% (BldA) [Mass fraction] 100 % Miki Jeannine [facility] 11-04-2022 08:28-0400 Systolic blood pressure 115 mm[Hg] Miki Jeannine [facility] 11-04-2022 07:51-0400 Heart rate 85 /min Miki Jeannine [facility] 11-04-2022 07:51-0400 SaO2% (BldA) [Mass fraction] 99 % Miki Jeannine [facility] 11-04-2022 07:51-0400 Body temperature 98.06 [degF] Miki Jeannine [facility] 11-04-2022 07:50-0400 Diastolic blood pressure 82 mm[Hg] Miki Jeannine [facility] 11-04-2022 07:50-0400 Mean blood pressure 98 mm[Hg] Mkii Jeannine [facility] 11-04-2022 07:50-0400 Systolic blood pressure 129 mm[Hg] Miki Jeannine [facility] 11-04-2022 07:46-0400 Respiratory rate 18 /min Miki Jeannine [facility] 09-24-2022 15:15-0500 Diastolic blood pressure 80 mm[Hg] Miki Jeannine [facility] 09-24-2022 15:15-0500 Heart rate 73 /min Miki Jeannine [facility] 09-24-2022 15:15-0500 Mean blood pressure 97 mm[Hg] Miki Jeannine [facility] 09-24-2022 15:15-0500 Respiratory rate 18 /min Miki Jeannine [facility] 09-24-2022 15:15-0500 Systolic blood pressure 130 mm[Hg] Miki Jeannine [facility] 09-03-2022 08:56-0500 Heart rate 75 /min Miki Jeannine [facility] 09-03-2022 08:56-0500 SaO2% (BldA) [Mass fraction] 100 % Miki Jeannine [facility] 09-03-2022 08:56-0500 Diastolic blood pressure 85 mm[Hg] Miki Jeannine [facility] 09-03-2022 08:56-0500 Mean blood pressure 102 mm[Hg] Miki Jeannine [facility] 09-03-2022 08:56-0500 Systolic blood pressure 135 mm[Hg] Miki Jeannine [facility] 09-03-2022 08:48-0500 Diastolic blood pressure 68 mm[Hg] Miki Jeannine [facility] 09-03-2022 08:48-0500 Heart rate 66 /min Miki Jeannine [facility] 09-03-2022 08:48-0500 Respiratory rate 12 /min Miki Jeannine [facility] 09-03-2022 08:48-0500 SaO2% (BldA) [Mass fraction] 96 % Miki Jeannine [facility] 09-03-2022 08:48-0500 Systolic blood pressure 116 mm[Hg] Miki Jeannine [facility] 09-03-2022 08:26-0500 Heart rate 77 /min Miki Jeannine [facility] 09-03-2022 08:26-0500 SaO2% (BldA) [Mass fraction] 100 % Miki Jeannine [facility] 09-03-2022 08:26-0500 Body temperature 98.78 [degF] Miki Jeannine [facility] 09-03-2022 08:25-0500 Diastolic blood pressure 82 mm[Hg] Miki Jeannine [facility] 09-03-2022 08:25-0500 Mean blood pressure 98 mm[Hg] Miki Jeannine [facility] 09-03-2022 08:25-0500 Systolic blood pressure 129 mm[Hg] Miki Jeannine [facility] 09-03-2022 08:25-0500 Respiratory rate 14 /min Miki Jeannine [facility] 08-27-2022 15:25-0500 Diastolic blood pressure 86 mm[Hg] Miki Jeannine [facility] 08-27-2022 15:25-0500 Heart rate 90 /min Miki Jeannine [facility] 08-27-2022 15:25-0500 Mean blood pressure 96 mm[Hg] Miki Jeannine [facility] 08-27-2022 15:25-0500 Respiratory rate 14 /min Miki Jeannine [facility] 08-27-2022 15:25-0500 Systolic blood pressure 117 mm[Hg] Miki Jeannine [facility] 08-06-2022 13:04-0500 Diastolic blood pressure 96 mm[Hg] Miki Jeannine [facility] 08-06-2022 13:04-0500 Heart rate 96 /min Miki Jeannine [facility] 08-06-2022 13:04-0500 Respiratory rate 16 /min Miki Jeannine [facility] 08-06-2022 13:04-0500 SaO2% (BldA) [Mass fraction] 100 % Miki Jeannine [facility] 08-06-2022 13:04-0500 Systolic blood pressure 139 mm[Hg] Miki Jeannine [facility] 08-06-2022 12:56-0500 Diastolic blood pressure 76 mm[Hg] Miki Jeannine [facility] 08-06-2022 12:56-0500 Heart rate 83 /min Miki Jeannine [facility] 08-06-2022 12:56-0500 Respiratory rate 14 /min Miki Jeannine [facility] 08-06-2022 12:56-0500 SaO2% (BldA) [Mass fraction] 100 % Miki Jeannine [facility] 08-06-2022 12:56-0500 Systolic blood pressure 125 mm[Hg] Miki Jeannine [facility] 08-06-2022 12:34-0500 Heart rate 90 /min Miki Jeannine [facility] 08-06-2022 12:34-0500 SaO2% (BldA) [Mass fraction] 100 % Miki Jeannine [facility] 08-06-2022 12:33-0500 Body temperature 98.42 [degF] Miki Jeannine [facility] 08-06-2022 12:33-0500 Diastolic blood pressure 93 mm[Hg] Miki Jeannine [facility] 08-06-2022 12:33-0500 Mean blood pressure 110 mm[Hg] Miki Jeannine [facility] 08-06-2022 12:33-0500 Systolic blood pressure 146 mm[Hg] Miki Jeannine [facility] [facility] 08-06-2022 12:31-0500 Respiratory rate 14 /min Miki Jeannine [facility] 07-22-2022 13:10-0500 Diastolic blood pressure 85 mm[Hg] Miki Jeannine [facility] 07-22-2022 13:10-0500 Heart rate 80 /min Miki Jeannine [facility] 07-22-2022 13:10-0500 Mean blood pressure 106 mm[Hg] Miki Jeannine [facility] 07-22-2022 13:10-0500 Systolic blood pressure 149 mm[Hg] Miki Jeannine [facility] 07-09-2022 13:57-0500 Diastolic blood pressure 79 mm[Hg] Miki Jeannine [facility] 07-09-2022 13:57-0500 Heart rate 72 /min Miki Jeannine [facility] 07-09-2022 13:57-0500 Mean blood pressure 99 mm[Hg] Miki Jeannine [facility] 07-09-2022 13:57-0500 SaO2% (BldA) [Mass fraction] 100 % Miki Jeannine [facility] 07-09-2022 13:57-0500 Systolic blood pressure 139 mm[Hg] Miki Jeannine [facility] 07-09-2022 13:57-0500 Respiratory rate 16 /min Miki Jeannine [facility] 07-09-2022 13:50-0500 Diastolic blood pressure 92 mm[Hg] Miki Jeannine [facility] 07-09-2022 13:50-0500 Heart rate 68 /min Miki Jeannine [facility] 07-09-2022 13:50-0500 Respiratory rate 18 /min Miki Jeannine [facility] 07-09-2022 13:50-0500 SaO2% (BldA) [Mass fraction] 97 % Miki Jeannine [facility] 11-15-2022 13:50-0500 Systolic blood pressure 136 mm[Hg] Miki Jeannine [facility] 07-09-2022 13:32-0500 Body temperature 98.42 [degF] Miki Paez [facility] 07-09-2022 13:32-0500 Diastolic blood pressure 85 mm[Hg] Miki Jeannine [facility] 07-09-2022 13:32-0500 Heart rate 76 /min Miki Paez [facility] 07-09-2022 13:32-0500 Mean blood pressure 100 mm[Hg] Miki Jeannine [facility] 07-09-2022 13:32-0500 Respiratory rate 18 /min Miki Paez [facility] 07-09-2022 13:32-0500 SaO2% (BldA) [Mass fraction] 100 % Miki Paez [facility] 07-09-2022 13:32-0500 Systolic blood pressure 132 mm[Hg] Miki Paez [facility] 05-27-2022 08:02-0400 Diastolic blood pressure 98 mm[Hg] Ashia Brito [facility] 05-27-2022 08:02-0400 Heart rate 69 /min Ashia Brito [facility] 05-27-2022 08:02-0400 Mean blood pressure 114 mm[Hg] Ashia Brito [facility] 05-27-2022 08:02-0400 Respiratory rate 16 /min Ashia Brito [facility] 05-27-2022 08:02-0400 Systolic blood pressure 146 mm[Hg] Ashia Brito [facility] Encounters Encounter Date Encounter Type Care Provider Facility Start: 12-27-2024 End: 12-27-2024 Patient encounter procedure Marcy Lehman MD Work Phone: Plastic Surgery Comment on above: Encounter for cosmet ic surgery (Primary Dx); Wrinkles Start: 12-27-2024 End: 12-27-2024 ambulatory Marcy LEHMAN Facility:[facility] Start: 03-07-2024 End: 03-07-2024 Emergency department patient visit Swapnil Infante [facility] Start: 10-24-2023 End: 10-24-2023 Patient encounter procedure Marcy Lehman MD Work Phone: Plastic Surgery Comment on above: Wrinkles (Primary Dx ); Encounter for cosmetic surgery Start: 12-19-2022 End: 12-19-2022 Patient encounter procedure Marcy Lehman MD Work Phone: Plastic Surgery Comment on above: Wrinkles (Primary Dx ); Encounter for cosmetic surgery Start: 12-09-2022 End: 12-09-2022 Pain Management Ashia Brito [facility] Start: 11-04-2022 End: 11-04-2022 Pain Management Miki Paez [facility] Start: 09-24-2022 End: 09-24-2022 Pain Management Miki Paez [facility] Start: 09-03-2022 End: 09-03-2022 Pain Management Miki Paez [facility] Start: 08-27-2022 End: 08-27-2022 Pain Management Miki Paez [facility] Start: 08-06-2022 End: 08-06-2022 Pain Management Miki Paez [facility] Start: 07-22-2022 End: 07-22-2022 Patient encounter procedure Ashiamaureen Brito [facility] Start: 07-22-2022 End: 07-22-2022 Pain Management Miki Paez [facility] Start: 07-09-2022 End: 07-09-2022 Pain Management Miki Paez [facility] Start: 05-27-2022 End: 05-27-2022 Pain Management Ashiamaureen Brito [facility] Start: 05-17-2022 End: 05-18-[address] WILI SANTACRUZ Facility:[facility] Start: 05-08-2022 End: 05-08-2022 ambulatory RAMO EVANGELISTA Facility:[facility] Start: 01-11-2022 End: 01-11-2022 Patient encounter procedure Marcy Lehman MD Work Phone: Plastic Surgery Comment on above: Elective procedure f or unacceptable cosmetic appearance (Primary Dx); Wrinkles Start: 11-16-2021 End: 11-17-[address] ALIA VITAL Facility:[facility] Start: 11-12-2021 End: 11-13-[address] ALIA VITAL Facility:[facility] Start: 11-06-2021 End: 11-06-[address] ALIA VITAL Facility:[facility] Start: 07-04-2021 End: 07-04-[address] WILI SANTACRUZ Facility:[facility] Procedures Date Procedure Procedure Detail Performing Clinician Start: 11-04-2022 Radiofrequency ablat ion of medial branch of cervical nerve using fluoroscopic guidance Ashia Brito Comment on above: Left RFA C2-C6 90% r elief Start: 09-03-2022 Injection of facet j oint using fluoroscopic guidance [employer] Comment on above: C2/3, C3/4+C4/5 90-9 5% relief Start: 08-06-2022 Injection of facet j oint using fluoroscopic guidance [employer] Comment on above: C2/3 C3/4 C4/5-80% R elief for 6 hours Start: 07-09-2022 Epidural injection o f cervical spine using fluoroscopic guidance [employer] Comment on above: C7/T1 EMMANUEL 50% relief Start: 06-21-2010 History of augmentat ion of breast Status post breast augmentation FREDY Lehman MD Work Phone: Abdominal hysterectomy [employer] Plan of Treatment Date Care Activity Detail Author Start: 04-25-2025 Influenza vaccination Influenz a Vaccine (Season Ended) [facility] Start: 04-25-2024 Covid-19 Vaccine ( season) Covid-19 Vaccine ( season) [facility] Start: 08-25-2023 Depression Assessment Depression Ass essment [facility] Start: 04-25-2023 Covid-19 Vaccine ( season) Covid-19 Vaccine ( season) [facility] Start: 04-25-2023 Influenza vaccination C [facility] Start: 08-25-2022 DEPRESSION ASSESSMENT DEPRESSION ASS ESSMENT [facility] Start: 2022 COLOGUARD (FIT-DNA) COLOGUARD (FIT-D NA) [facility] Start: 2022 Colonoscopy COLONOSCOPY [facility] Start: 2022 COLORECTAL CANCER SCREENING COLORECTAL CANCER SCREENING [facility] Start: [address] COLONOGRAPHY [facility] Start: 2022 DIABETES SCREEN DIABETES SCREEN [facility] Start: 2022 Diabetes Screening Diabetes Screenin g [facility] Start: 2022 FECAL OCCULT BLOOD FECAL OCCULT BLOO D [facility] Start: 2022 Lipid panel Lipid Screening [facility] Start: 2022 LIPID SCREEN LIPID SCREEN [facility] Start: 2022 Screening for malign ant neoplasm of colon [facility] Start: 2022 SIGMOIDOSCOPY SIGMOIDOSCOPY [facility] Start: 12-16-2021 COVID-19 VACCINE (3 - Booster for Pfizer series) COVID-19 VACCINE (3 - Booster for Pfizer series) [facility] Start: 09-12-2021 COVID-19 VACCINE (3 - Booster for Pfizer series) COVID-19 VACCINE (3 - Booster for Pfizer series) [facility] Start: 2017 Mammography MAMMOGRAM [facility] Start: 2017 Screening for malign ant neoplasm of breast Mammogram Screening [facility] Start: 2007 HPV TESTING HPV TESTING [facility] Start: 2007 Screening for malign ant neoplasm of cervix HPV Testing [facility] Start: 1998 PAP TESTING PAP TESTING [facility] Start: 1998 Screening for malign ant neoplasm of cervix [facility] Start: 1996 Hepatitis B Vaccine (1 of 3 - 19+ 3-dose series) Hepatitis B Vaccine (1 of 3 - 19+ 3-dose series) [facility] Start: 1996 Urine microalbumin profile [facility] Start: 1995 Anxiety Screening Anxiety Screening [facility] Start: 1995 Depression Screening Depression Scre ening [facility] Start: 1995 HEPATITIS C SCREENING HEPATITIS C [facility] Start: 1995 Hepatitis C screening Hepatitis C [facility] Start: 1995 HIV SCREENING HIV SCREENING [facility] Start: 1995 HIV screening HIV Screening [facility] Start: 1989 Adult depression scr [facility] assessment DEPRESSION SCREENING [facility] Start: 1977 HEPATITIS B (1 of 3 - 3-dose series) HEPATITIS B (1 of 3 - 3-dose series) [facility] Start: 1977 Hepatitis B Vaccine (1 of 3 - 3-dose series) Hepatitis B Vaccine (1 of 3 - 3-dose series) [facility] Immunizations Immunization Date Immunization Notes Care Provider Kacey kauffman 07-18-2021 influenza virus vacc ine, unspecified formulation FREDY Lehman MD Work Phone: [facility] Payers Date Payer Category Payer Unknown [id number] 2023 Unknown [employer]ANI[employer] PPO OOS [id number] 2023-Present [phone] [address] [place] [address] PPO [id number] 1977 Unknown [id number] 1977 Unknown [id number] 1977 Unknown [id number] 1977 Unknown [id number] 1977 Unknown [id number] 1977 Unknown [id number] 1977 Unknown [id number] 1959 Unknown [id number] Social History Date Type Detail Facility Start: 05-02-2010 Tobacco smoking stat us NCIS Ex-smoker [facility] End: 05-02-2010 History of tobacco use Current smoker [facility] End: 05-02-2010 History of tobacco use Cigarette Smoker [facility] Start: 05-31-2010 Alcohol intake Current drinke r of alcohol (finding) [facility] Start: 05-31-2010 End: 10-24-2023 Alcohol intake [facility] Start: 1977 Sex Assigned At Not on file [facility] Start: 12-22-2021 End: 01-01-2022 Exposure to SARS-CoV-2 (event) Not sure [facility] Tobacco smoking status No Smokin g Status Entered [facility] Start: 10-24-2023 Sex Assigned At Female F [facility] Tobacco smoking status No Smokin g Status Entered [facility] National Score (1-100), lower number is lower risk 61 [facility] Medical Equipment Procedure Code Equipment Code Equipment Origin al Text Equipment Identifier Dates Mamm Style 15 33 9 Cc - [id number] Start: 05-22-2010 Comment on above: Description: NOLVIA Boo SILICONE-FILLED BREAST IMPLANT STYLE 15, 339CC Mamm Style 15 33 9 Cc - [id number] Start: 05-22-2010 Comment on above: Description: NOLVIA Boo SILICONE-FILLED BREAST IMPLANT STYLE 15, 339CC Functional Status Date Assessment Result Facility 03-07-2024 Functional Status N/A [facility] 12-09-2022 Functional Status N/A [facility] 11-04-2022 Functional Status N/A [facility] 09-24-2022 Functional Status N/A [facility] 09-03-2022 Functional Status N/A [facility] 08-27-2022 Functional Status N/A [facility] 08-06-2022 Functional Status N/A [facility] 07-22-2022 Functional Status N/A [facility] 07-09-2022 Functional Status N/A [facility] 05-27-2022 Functional Status N/A [facility] 02-27-2015 Are you deaf, or do you have serious difficulty hearing No 02/27/2015 10:39 AM Marlyn Marshall LPN No [facility] 02-27-2015 Are you blind, or do you have serious difficulty seeing, even when wearing glasses No 02/27/2015 10:39 AM Marlyn Marshall LPN No [facility] 02-27-2015 Do you have serious difficulty walking or climbing stairs No 02/27/2015 10:39 AM Marlyn Marshall LPN No [facility] 02-27-2015 Do you have difficul ty dressing or bathing No 02/27/2015 10:39 AM EDT Marlyn Morales LPN No [facility] 02-27-2015 Because of a physica l, mental, or emotional condition, do you have difficulty doing errands alone such as visiting a physician's office or shopping No 02/27/2015 10:39 AM EDT Marlyn Morales LPN No [facility] Mental Status Date Assessment Result Facility 02-27-2015 Because of a physica l, mental, or emotional condition, do you have serious difficulty concentrating, remembering, or making decisions No 02/27/2015 10:39 AM EDT Marlyn Morales LPN No [facility] Clinical Notes 01-11-2022 to 12-27-2024 Marcy Lehman MD - 12/27/2024 10:06 AM Marcy Chaudhari MD - 10/24/2023 12:40 PM ESTJ Stefano Lehman MD - 12/19/2022 11:42 AM EDT Note Date & Type Note Facility 12-27-2024 Note HNO ID: [id number] Author: Marcy LEHMAN MD Service: ? Author Type: Physician Type: Progress Notes Filed: 12/27/2024 10:20 Note Text: Familia'tamara chief complaint: forehead lines, frown lines, and lines around the eyes. Injection history: repeat patient. I discussed with the patient the treatment procedure, the treatment options, the risk profile, the limited duration and longevity, the difference between botox and fillers. The patient consents to the procedure and wishes to proceed. UNIVERSAL PROTOCOL / SAFETY CHECKLIST Procedure to be Performed: Botox Sign In: A Moment of CARE was completed. Appropriate PPE (Personal Protective Equipment) worn by all providers involved with the procedure. Special equipment not required. Patient/Surrogate Stated/Verified: Patient name, Date of , Relevant allergies, and The intended procedure Time Out: Relevant labs, photos, and/or imaging studies are not applicable. Intended patient and procedure match the source document(s) (e.g. consent, HANDP, associated studies [imaging, pathology]) are not applicable. Consent obtained and matches the intended procedure. Correct side/site has been marked and visible. Medications required for this procedure are verified. Fire risk assessed and is not applicable. Implants: are not applicable. Sign Out: Specimens not collected. All instruments, equipment, possible retained foreign bodies are accounted for. The post-procedure plan of care has been communicated to the patient or surrogate. Today's Treatment: Plan: Botox alone Area: Forehead, Frown lines, and Ronna orbital area - squaxin's feet Dosing: Forehead: 2-4-4-4-2 = 16 units Central forehead 4 units x 1 = 4 units Glabella 4 units x 3 = 12 units CF 4 units x 2 = 8 units Total: 40 units Botox ([id number] EXP 05/2026) Familia tolerated the treatment well, post-treatment instructions given. Follw-up: as needed Charge: $560 jamie rewards: -$100 Total due: $460 (Z41.1) Encounter for cosmetic surgery (primary encounter diagnosis) (L98.8) Wrinkles [facility] 12-27-2024 History of Presen t illness Narrative Familia's chief complaint: forehead lines, frown lines, and lines around the eyes. Injection history: repeat patient. I discussed with the patient the treatment procedure, the treatment options, the risk profile, the limited duration and longevity, the difference between botox and fillers. The patient consents to the procedure and wishes to proceed. UNIVERSAL PROTOCOL / SAFETY CHECKLIST Procedure to be Performed: Botox Sign In: A Moment of CARE was completed. Appropriate PPE (Personal Protective Equipment) worn by all providers involved with the procedure. Special equipment not required. Patient/Surrogate Stated/Verified: Patient name, Date of , Relevant allergies, and The intended procedure Time Out: Relevant labs, photos, and/or imaging studies are not applicable. Intended patient and procedure match the source document(s) (e.g. consent, H&P, associated studies [imaging, pathology]) are not applicable. Consent obtained and matches the intended procedure. Correct side/site has been marked and visible. Medications required for this procedure are verified. Fire risk assessed and is not applicable. Implants: are not applicable. Sign Out: Specimens not collected. All instruments, equipment, possible retained foreign bodies are accounted for. The post-procedure plan of care has been communicated to the patient or surrogate. Today's Treatment: Plan: Botox alone Area: Forehead, Frown lines, and Ronna orbital area - squaxin's feet Dosing: Forehead: 2-4-4-4-2 = 16 units Central forehead 4 units x 1 = 4 units Glabella 4 units x 3 = 12 units CF 4 units x 2 = 8 units Total: 40 units Botox ([id number] EXP 05/2026) Familia tolerated the treatment well, post-treatment instructions given. Follw-up: as needed Charge: $560 jamie rewards: -$100 Total due: $460 (Z41.1) Encounter for cosmetic surgery (primary encounter diagnosis) (L98.8) Wrinkles documented in this encounter [facility] 03-07-2024 Hospital Discharg e instructions Patient Education 03/07/2024 20:30:59 Panic Attack Panic Attack A panic attack is a sudden episode of severe anxiety, fear, or discomfort that causes physical and emotional symptoms. A panic attack may be in response to something frightening, or it may occur for no known reason. Symptoms of a panic attack can be similar to symptoms of a heart attack or stroke. It is important to see your health care provider when you have a panic attack so that these conditions can be ruled out. What are the causes? A panic attack may be caused by: An extreme, life-threatening situation, such as a war or natural disaster. An anxiety disorder, such as post-traumatic stress disorder. Depression. Panic disorder. Certain medical conditions, including heart problems, neurological conditions, and infections. Other causes may include: Certain ktgg-wzx-bbbnwpa and prescription medicines. Supplements that increase anxiety. Illegal drugs that increase heart rate and blood pressure, such as methamphetamine. What increases the risk? You are more likely to develop this condition if: You have another mental health condition. You use alcohol, illegal drugs, or other substances. You are under extreme stress. A life event is causing increased feelings of anxiety and depression. What are the signs or symptoms? A panic attack starts suddenly, usually lasts 5 10 minutes, and occurs with one or more of the following: A pounding heart, or a feeling that your heart is beating irregularly or faster than normal (palpitations). Sweating, trembling, or shaking. Shortness of breath, feeling smothered, or feeling choked. Chest pain or discomfort. Nausea or a strange feeling in your stomach. Dizziness, feeling light-headed, or feeling like you might faint. Other symptoms may include: Chills or hot flashes. Numbness or tingling in your lips, hands, or feet. Feeling confused, or feeling that you are not yourself. Fear of losing control or of being emotionally unstable, or fear of dying. How is this diagnosed? A panic attack is diagnosed with an assessment by your health care provider. During the assessment, your health care provider will ask questions about: Your history of anxiety, depression, and panic attacks. Your medical history. Whether you drink alcohol, use drugs, take supplements, or take medicines. Be honest about your substance use. Your health care provider may also: Order blood tests or other kinds of tests to rule out serious medical conditions. Refer you to a mental health professional for further evaluation. How is this treated? A panic attack is a symptom of another condition. Treatment depends on the cause of the panic attack. If the cause is a medical problem, your health care provider will treat that problem or refer you to a specialist. If the cause is emotional, you may be given anti-anxiety medicines or referred to a counselor. Anti-anxiety medicines may reduce how often attacks happen, reduce how severe the attacks are, and lower anxiety. If the cause is a medicine, your health care provider may tell you to stop the medicine, change your dose, or take a different medicine. If the cause is an illegal drug, treatment may involve letting the drug wear off and taking medicine to help the drug leave your body or to stop its effects. Attacks caused by heavy drug use may continue even if you stop using the drug. Most panic attacks go away with treatment of the underlying problem. If you have panic attacks often, you may have a condition called panic disorder. Follow these instructions at home: Alcohol use Do not drink alcohol if: ?Your health care provider tells you not to drink. ?You are , may be , or are planning to become . If you drink alcohol: ?Limit how much you have to: ?0 1 drink a day for women. ?0 2 drinks a day for men. ?Know how much alcohol is in your drink. In the [place] one drink equals one 12 oz bottle of beer (355 mL), one 5 oz glass of wine (148 mL), or one 1 oz glass of hard liquor (44 mL). General instructions Take oznu-ugr-kqipegi and prescription medicines only as told by your health care provider. If you feel anxious, limit your caffeine intake. Take good care of your physical and mental health by: ?Eating a balanced diet that includes plenty of fresh fruits and vegetables, whole grains, lean meats, and low-fat dairy. ?Getting plenty of rest. Try to get 7 8 hours of uninterrupted sleep each night. ?Exercising regularly. Try to get 30 minutes of physical activity at least 5 days a week. Do not use any products that contain nicotine or tobacco. These products include cigarettes, chewing tobacco, and vaping devices, such as e-cigarettes. If you need help quitting, ask your health care provider. Keep all follow-up visits. This is important. Panic attacks may have underlying physical or emotional problems that take time to accurately diagnose. Where to find more information Substance Abuse and Mental Health Services Administration (SAMHSA): samhsa.gov National [place] of Mental Health ([facility]): www.nimh.nih.gov Contact a health care provider if: Your symptoms do not improve, or they get worse. You are not able to take your medicine as prescribed because of side effects. Get help right away if: You have thoughts about hurting yourself or others. Get help right away if you feel like you may hurt yourself or others, or have thoughts about taking your own life. Go to your nearest emergency room or: Call 911. Call the National Suicide Prevention Lifeline at or 490. This is open 24 hours a day. Text the Crisis Text Line at 272157. Summary A panic attack is a sudden episode of severe anxiety, fear, or discomfort that causes physical and emotional symptoms. Always see a health care provider to have the reasons for the panic attack correctly diagnosed. If your panic attack was caused by a physical problem, follow your health care provider's suggestions for medicine, referral to a specialist, and lifestyle changes. If your panic attack was caused by an emotional problem, follow through with counseling from a qualified mental health specialist. If you feel like you may hurt yourself or others, call 911 and get help right away. This information is not intended to replace advice given to you by your health care provider. Make sure you discuss any questions you have with your health care provider. Document Revised: 03/21/2022 Document Reviewed: 03/21/2022 [employer] Patient Education 2022 [employer]. Follow Up Care 03/07/2024 18:38:11 With:Wili Santacruz Address: [address] [place] [address] [place] [address] Business (1) When:03/10/2024 20:23:36 [facility] 03-07-2024 Note ED Patient Education Note Mental and Behavioral Health Panic Attack A panic attack is a sudden episode of severe anxiety, fear, or discomfort that causes physical and emotional symptoms. A panic attack may be in response to something frightening, or it may occur for no known reason. Symptoms of a panic attack can be similar to symptoms of a heart attack or stroke. It is important to see your health care provider when you have a panic attack so that these conditions can be ruled out. What are the causes? A panic attack may be caused by: ? An extreme, life-threatening situation, such as a war or natural disaster. ? An anxiety disorder, such as post-traumatic stress disorder. ? Depression. ? Panic disorder. ? Certain medical conditions, including heart problems, neurological conditions, and infections. Other causes may include: ? Certain pbld-osq-gwidycc and prescription medicines. ? Supplements that increase anxiety. ? Illegal drugs that increase heart rate and blood pressure, such as methamphetamine. What increases the risk? You are more likely to develop this condition if: ? You have another mental health condition. ? You use alcohol, illegal drugs, or other substances. ? You are under extreme stress. ? A life event is causing increased feelings of anxiety and depression. What are the signs or symptoms? A panic attack starts suddenly, usually lasts 5?10 minutes, and occurs with one or more of the following: ? A pounding heart, or a feeling that your heart is beating irregularly or faster than normal (palpitations). ? Sweating, trembling, or shaking. ? Shortness of breath, feeling smothered, or feeling choked. ? Chest pain or discomfort. ? Nausea or a strange feeling in your stomach. ? Dizziness, feeling light-headed, or feeling like you might faint. Other symptoms may include: ? Chills or hot flashes. ? Numbness or tingling in your lips, hands, or feet. ? Feeling confused, or feeling that you are not yourself. ? Fear of losing control or of being emotionally unstable, or fear of dying. How is this diagnosed? A panic attack is diagnosed with an assessment by your health care provider. During the assessment, your health care provider will ask questions about: ? Your history of anxiety, depression, and panic attacks. ? Your medical history. ? Whether you drink alcohol, use drugs, take supplements, or take medicines. Be honest about your substance use. Your health care provider may also: ? Order blood tests or other kinds of tests to rule out serious medical conditions. ? Refer you to a mental health professional for further evaluation. How is this treated? A panic attack is a symptom of another condition. Treatment depends on the cause of the panic attack. ? If the cause is a medical problem, your health care provider will treat that problem or refer you to a specialist. ? If the cause is emotional, you may be given anti-anxiety medicines or referred to a counselor. Anti-anxiety medicines may reduce how often attacks happen, reduce how severe the attacks are, and lower anxiety. ? If the cause is a medicine, your health care provider may tell you to stop the medicine, change your dose, or take a different medicine. ? If the cause is an illegal drug, treatment may involve letting the drug wear off and taking medicine to help the drug leave your body or to stop its effects. Attacks caused by heavy drug use may continue even if you stop using the drug. Most panic attacks go away with treatment of the underlying problem. If you have panic attacks often, you may have a condition called panic disorder. Follow these instructions at home: Alcohol use ? Do not drink alcohol if: ? Your health care provider tells you not to drink. ? You are , may be , or are planning to become . ? If you drink alcohol: ? Limit how much you have to: ? 0?1 drink a day for women. ? 0?2 drinks a day for men. ? Know how much alcohol is in your drink. In the [place] one drink equals one 12 oz bottle of beer (355 mL), one 5 oz glass of wine (148 mL), or one 1? oz glass of hard liquor (44 mL). General instructions ? Take twzn-yhj-xbisklv and prescription medicines only as told by your health care provider. ? If you feel anxious, limit your caffeine intake. ? Take good care of your physical and mental health by: ? Eating a balanced diet that includes plenty of fresh fruits and vegetables, whole grains, lean meats, and low-fat dairy. ? Getting plenty of rest. Try to get 7?8 hours of uninterrupted sleep each night. ? Exercising regularly. Try to get 30 minutes of physical activity at least 5 days a week. ? Do not use any products that contain nicotine or tobacco. These products include cigarettes, chewing tobacco, and vaping devices, such as e-cigarettes. If you need help quitting, ask your health care provider. ? Keep all follow-up visits. This is importan (more content not included)... [facility] 10-24-2023 History of Presen t illness Narrative Familia's chief complaint: forehead lines, frown lines and lines around the eyes. Injection history: repeat patient. I discussed with the patient the treatment procedure, the treatment options, the risk profile, the limited duration and longevity, the difference between botox and fillers. The patient consents to the procedure and wishes to proceed. UNIVERSAL PROTOCOL / SAFETY CHECKLIST Procedure to be Performed: botox injections Sign In: A Moment of CARE was completed. Personnel directly involved with the procedure wore the appropriate PPE (Personal Protective Equipment). No special equipment needed. Patient/Surrogate Stated/Verified: PATIENT VERIFIED(optional for EMERGENT procedures): Patient name, Date of , Relevant allergies, and The intended procedure Time Out Communication: Intended patient and procedure match the source documents. Consent documented and matches the intended procedure. No relevant labs, photos, and/or imaging studies were applicable for review. Correct side/site marked and visible. Medications required for procedure verified. No fire risk assessment and interventions applicable. No implant(s) inserted. Sign Out: SIGN OUT (optional for EMERGENT procedures): No specimen collected. No instruments, equipment or retained foreign bodies applicable. Post-procedure follow-up management communicated and Plan of Care Visit completed when applicable. Marcy Lehman MD Today's Treatment: Plan: Botox, filler Area: Forehead, Frown lines and Ronna orbital area - squaxin's feet , Dosing: Forehead: 2-4-4-4-2 = 16 units Central forehead 4 units x 1 = 4 units Glabella 6-4-6 = 16 units CF 4 units x 2 = 8 units Total: 44 units Botox ([id number] EXP 12/2025) Familia tolerated the treatment well, post-treatment instructions given. Follw-up: as needed Charge: $616 jamie rewards: -$20 Total due: 596 The documentation for this note was completed by Alexa Burroughs LPN acting as scribe for Marcy Lehman MD. October 24, 2023 12:41 PM. I agree with the Chief Complaint, ROS, and Past Histories independently gathered by the clinical application support intern and the remaining scribed note accurately describes my personal service to the patient. Marcy Lehman MD documented in this encounter [facility] 12-19-2022 History of Presen t illness Narrative Familia's chief complaint: forehead lines, frown lines and lines around the eyes. Injection history: repeat patient. I discussed with the patient the treatment procedure, the treatment options, the risk profile, the limited duration and longevity, the difference between botox and fillers. The patient consents to the procedure and wishes to proceed. UNIVERSAL PROTOCOL / SAFETY CHECKLIST Procedure to be Performed: botox injections Sign In: A Moment of CARE was completed. Personnel directly involved with the procedure wore the appropriate PPE (Personal Protective Equipment). No special equipment needed. Patient/Surrogate Stated/Verified: PATIENT VERIFIED(optional for EMERGENT procedures): Patient name, Date of , Relevant allergies, and The intended procedure Time Out Communication: Intended patient and procedure match the source documents. Consent documented and matches the intended procedure. No relevant labs, photos, and/or imaging studies were applicable for review. Correct side/site marked and visible. Medications required for procedure verified. No fire risk assessment and interventions applicable. No implant(s) inserted. Sign Out: SIGN OUT (optional for EMERGENT procedures): No specimen collected. No instruments, equipment or retained foreign bodies applicable. Post-procedure follow-up management communicated and Plan of Care Visit completed when applicable. Marcy Lehman MD Today's Treatment: Plan: Botox, filler Area: Forehead, Frown lines and Ronna orbital area - squaxin's feet , Dosing: Forehead: 2-4-4-4-2 = 16 units Central forehead 4 units x 1 = 4 units Glabella 6-4-6 = 16 units CF 4 units x 2 = 8 units Total: 44 units Botox ([id number], Exp 04/2025) Familia tolerated the treatment well, post-treatment instructions given. Follw-up: as needed Charge: 616 jamie rewards: -$40 Total due: 576 The patient is seen and examined by Marcy Lehman MD and the following reflects his/her service. Scribed by Marlyn Morales LPN I agree with the Chief Complaint, ROS, and Past Histories independently gathered by the clinical application support intern and the remaining scribed note accurately describes my personal service to the patient. Marcy Lehman MD documented in this encounter [facility] 12-09-2022 Evaluation + Plan note Extrac haroon from: Title:Pain Managment Follow up Author:Ashia Caballero Date:12/09/22 Impression and Plan Patient is a 47-year-old female with a past medical history significant for cervical spondylosis and chronic neck pain. Recent left-sided C2-3, C3-4, and C4-5 facet RFA done on 11/04/2022 has given her 90% relief at this time. She states that she is doing better. She is more comfortable. She is better able to turn her head, look up, and move her head around. She is overall very pleased at this time. She does wonder about seeing the chiropractor. Questions and concerns were all answered and discussed. I gave her clearance to see the chiropractor and pursue life as she feels she is able to do so. She is going to follow-up as needed PURVI score: 12 [facility]03-13-2023 Evaluation + Plan noteExtracted from: Title:Cervical Facet RFA - LEFT - Jeannine Author :Miki Paez MD Date:11/04/22 Patient: FAMILIA JEFFREY Age: 47 years Sex: Female : 1975 Associated Diagnoses: None Author: Miki Paez MD Procedure Procedure: Cervical Facet Medial Branch (third occipital) Radiofrequency Ablation to the Left C2/3, C3/4 and C4/5 Facet Joints with Fluoroscopic Guidance Diagnosis: Cervical Spondylosis without myelopathy Anesthesia: local The patient was identified in the pre-op area. The procedure, including risks benefits and alternatives was discussed with the patient. The patient agreed to proceed. Informed consent was obtained and the site(s) marked. The patient was brought to the procedure room and placed in the right lateral position with padding under the head. Time out was performed. The neck was prepped and draped in sterile fashion with Chloraprep. Skin and subcutaneous tissues were anesthetized with 6 mL of Lidocaine 2% through a 25G needle. 20G RFA 10mm active tip needles were then advanced under fluoroscopic guidance to the locations of the medial branch (third occipital) nerves to the left C2/3, C3/4 and C4/5 facet joints. Impedances were within normal parameters. Motor stimulation at 2mA at each level was negative for any upper extremity stimulation. 4mL of 2% lidocaine and 10mg of PF dexamethasone was then injected through the needles in equally divided doses. Radiofrequency ablation then took place at 80 degrees Celsius for 80 seconds x2. The needles were removed and bandages applied. The patient was brought to the recovery area in stable condition and then monitored for an appropriate period of time. The patient was discharged home in good condition with post-procedure instructions. No apparent complications. Epidural injection procedure Physical Exam: vital signs Vital Signs 11/04/2022 8:28 EDT Heart Rate Monitored 84 bpm Respiratory Rate 16 br/min Systolic Blood Pressure 115 mmHg Diastolic Blood Pressure 68 mmHg SpO2 100 % 11/04/2022 7:51 EDT Heart Rate Monitored 85 bpm SpO2 99 % 11/04/2022 7:51 EDT Temperature Oral 36.7 DegC 11/04/2022 7:50 EDT Systolic Blood Pressure 129 mmHg Diastolic Blood Pressure 82 mmHg Mean Arterial Pressure, Monitered 98 mmHg 11/04/2022 7:46 EDT Respiratory Rate 18 br/min . Addendum by Miki Paez MD on 2022 10:57 EDT - Future Appointments Appointment Date:12/09/2022 12:45:00 PM Scheduled Provider:Ashia Brito PA-C Location:.[facility] Appointment Type:Pain Management - Follow Up (FT) [facility]01-31-2023 Evaluation + Plan noteExtracted from: Title:FUV Author:Miki Paez MD Date :09/24/22 Impression and Plan 47-year-old female with chronic left-sided neck pain that is facet mediated based on 2 sets of diagnostic facet blocks to the left C2/3, C3/4, and C4/5 facet joints. The patient experienced over 80% relief for several hours directly following each block with significantly improved function during that period of time. Her current pain significantly past quality life and activities of daily living. We discussed the option of radiofrequency ablation to the same sites to provide longer lasting relief. That procedure was reviewed in great detail including its risk, benefits, and alternatives. The patient wishes to proceed. Plan to follow-up 4 weeks after the procedure to assess response. Patient agrees with plan of care. [facility]01-03-2023 Evaluation + Plan noteExtracted from: Title:FUV Author:Miki Paez MD Date :08/27/22 Impression and Plan 47-year-old female with cervical spondylosis with significant improvement of pain and function directly following diagnostic facet blocks to the left C2/3, C3/4, and C4/5 facet joints. I recommend repeating the procedure to confirm etiology of pain. If the patient again experiences significant improvement of her pain and function directly following the procedure she would be a candidate for radiofrequency ablation at the same sites to provide longer lasting relief. The treatment process was reviewed with the patient in detail. The patient's questions were addressed. She would like to proceed to soon as possible. Follow-up 1 week after the diagnostic blocks to assess response. Patient agrees with plan of care. [facility]11-28-2022 Evaluation + Plan noteExtracted from: Title:Pain Managment Follow up Author:Ashia Caballero Date:07/22/22 Impression and Plan Patient is a 47-year-old female with a past medical history significant for suspected cervical spondylosis, chronic neck pain, and cervical neuritis. Patient underwent recent C7-T1 epidural steroid injection. This was done on 07/09/2022 and has given her significant relief of her radicular symptoms. Unfortunate, she is still having a lot of left-sided neck pain that appears facet mediated upon physical examination. We reviewed the MRI. We discussed different options. At this time I recommended a cervical x-ray and pursuing left-sided C2-3, C3-4, and C4-5 medial branch block for diagnostic purposes. If she has significant short-term relief of her neck pain she may be a future candidate for RFA. Procedure was discussed. Risk and benefits were discussed. Patient is agreeable. She will follow-up 2 weeks after the injection for reevaluation. Call the clinic sooner if necessary. [facility]11-15-2022 Evaluation + Plan noteExtracted from: Title:Cervical Epidural- Jeannine Author:Miki Paez MD Date:07/09/22 Impression and Plan Future Appointments Appointment Date:07/22/2022 01:00:00 PM Scheduled Provider:Ashia Brito PA-C Location:.[facility] Appointment Type:Pain Management - Follow Up (FT) [facility]10-03-2022 Evaluation + Plan noteExtracted from: Title:Pain management new patient Author:Ashia Mccullough PA-C Date:05/27/22 Impression and Plan Patient is a 47-year-old female with a past medical history significant for cervical stenosis, cervical neuritis, cervical degenerative disease and cervical disc bulge. She has undergone all reasonable conservative treatments and unfortunate, still has neck pain on the left side with left shoulder pain and left arm pain. Based on her failure to improve with conservative treatments, her MRI films and her pain pattern I would recommend a C7-T1 epidural steroid injection for both diagnostic and therapeutic purposes. Procedure was discussed. Risk and benefits were discussed. Patient is agreeable. She will follow-up 2 weeks after the injection for reevaluation. Call the clinic sooner if necessary. [facility]05-20-2022 Instructions* Patient Instructions* Marcy Lehman MD - 01/11/2022 11:06 AM EDT post-treatment instructions [facility] History of Present illness Narrative* Marcy Lehman MD - 01/11/2022 10:57 AM EDT Familia's chief complaint: forehead lines, frown lines and lines around the eyes. Injection history: repeat patient. I discussed with the patient the treatment procedure, the treatment options, the risk profile, the limited duration and longevity, the difference between botox and fillers. The patient consents to the procedure and wishes to proceed. UNIVERSAL PROTOCOL / SAFETY CHECKLIST Procedure to be performed: Botox Sign in Communication: Completed Time Out: Team Confirms the Correct Patient, Correct Procedure, Correct Site and Site Marking, Correct Position (if applicable), Prep and Dry Time (if applicable). Time: 1022 Affirmation of Time Out: YES Sign Out Discussion: Completed Marcy Lehman MD Today's Treatment: Plan: Botox, filler Area: Forehead, Frown lines and Ronna orbital area - squaxin's feet , NL folds and chin area as directed by patient Dosing: Forehead: 2-4-4-4-2 = Units Central forehead 4 units x 1 Glabella 6-4-6 = 16 Cf 4 units x 2 = 8 Vollure to left chin and NL folds as directed by the patient Total: 44 units Botox ([id number] exp 07/2023) Juvederm vollure 1 syringe ([id number] exp 08/12/2022) Familia tolerated the treatment well, post-treatment instructions given. Follw- up: as needed Charge: $1316 jamie rewards: -$90 Total due: $1226 The documentation for this note was completed by Alexa Burroughs LPN acting as scribe for Marcy Lehman MD. June 15, 2021 10:40 AM. I agree with the Chief Complaint, ROS, and Past Histories independently gathered by the clinical application support intern and the remaining scribed note accurately describes my personal service to the patient. [facility] Future Appointments Appointment Date:08/27/2022 03:15:00 PM Scheduled Provider:Miki Paez MD Location:[facility] Appointment [facility] Future Appointments Appointment Date:09/24/2022 03:15:00 PM Scheduled Provider:Miki Paez MD Location:[facility] Appointment Type:Pain Management - Follow Up (FT) [facility] note* Diagnosis Elective procedure for unacceptable cosmetic appearance- Primary Other plastic surgery for unacceptable cosmetic appearance Wrinkles Other specified hypertrophic and atrophic condition of skin documented in this encounter [facility] note* Diagnosis Wrinkles- Primary Other specified hypertrophic and atrophic condition of skin Encounter for cosmetic surgery Other plastic surgery for unacceptable cosmetic appearance documented in this encounter [facility] note* Diagnosis Wrinkles- Primary Other specified hypertrophic and atrophic condition of skin Encounter for cosmetic surgery Other plastic surgery for unacceptable cosmetic appearance documented in this encounter [facility] note* Diagnosis Encounter for cosmetic surgery- Primary Other plastic surgery for unacceptable cosmetic appearance Wrinkles Other specified hypertrophic and atrophic condition of skin documented in this encounter [facility] course Narrative No data available for this section [facility] No data available for this section [facility] No data available for this section [facility] Advance Directives No Advanced Directives Records FoundDocuments on File Type Date Recorded Patient Tick Inspector Expl anation Advance Directive(s) Summary Purpose Family History No Family History Records Found No data available for this section No Family History Records FoundNo Family History Records Found Additional Source Comments Source Comments (unrecognize d section and content) In the event this informatio n is protected by the Federal Confidentiality of Alcohol and Drug Abuse Patient Records regulations: The Federal rules restrict any use of the information to criminally investigate or prosecute any alcohol or drug abuse patient.[facility] the event this information is protected by the Federal Confidentiality of Alcohol and Drug Abuse Patient Records regulations: The Federal rules restrict any use of the information to criminally investigate or prosecute any alcohol or drug abuse patient.[facility] the event this information is protected by the Federal Confidentiality of Alcohol and Drug Abuse Patient Records regulations: The Federal rules restrict any use of the information to criminally investigate or prosecute any alcohol or drug abuse patient.[facility] the event this information is protected by the Federal Confidentiality of Alcohol and Drug Abuse Patient Records regulations: The Federal rules restrict any use of the information to criminally investigate or prosecute any alcohol or drug abuse patient.[facility] Care Teams (unrecognized sec tion and content) Room Worker Relationship Specialty Start Date End Date Wili Santacruz MD PCP - General 8/30/10 Room Worker Relationship Specialty Start Date End Date Wili Santacruz MD PCP - General 04/23/10 Room Worker Relationship Specialty Start Date End Date Wili Santacruz MD PCP - General 04/23/10 Room Worker Relationship Specialty Start Date End Date Wili Santacruz MD PCP - General 04/23/10 INFORMATION SOURCE (unrecogn ized section and content) DATE CREATED AUTHOR 05/22/2022 Mary Lee [facility] DATE CREATED AUTHOR AUTHOR'S ORGANIZ ATION 03/11/2024 [facility] [facility] DATE CREATED AUTHOR AUTHOR'S ORGANIZ ATION 12/30/2024 [facility] Reason for Visit (unrecogniz ed section and content) Reason Comments Botox Injection FOR RECORDS PERTAINING TO PATIENTS WHO ARE OR HAVE BEEN ENROLLED IN A CHEMICAL DEPENDENCY/SUBSTANCEABUSE PROGRAM, SOME INFORMATION MAY BE OMITTED. This clinical summary was aggregated from multiple sources. Caution should be exercised in using it in the provision of clinical care. This summary normalizes information from multiple sources, and as a consequence, information in this document may materially change the coding, format and clinical context of patient data. In addition, data may be omitted in some cases. CLINICAL DECISIONS SHOULD BE BASED ON THE PRIMARY CLINICAL RECORDS. [employer] provides no warranty or guarantee of the accuracy or completeness of information in this document.
[2025-04-19 14:23] LABS: Hematocrit 41.7 % (36.0-48.0); Hemoglobin 14.3 g/dL (12.0-16.0); Immature Granulocytes Abs Auto 0.02 10^3/uL (0.00-0.03); Immature Granulocytes Pct Auto 0.3 % (0.0-0.5); Lymphocytes Absolute Auto 2.2 10^3/uL (1.2-3.8); Mean Corpuscular HGB Conc 34.3 g/dL (29.9-35.2); Mean Corpuscular Hemoglobin 31.5 pg (26.7-34.0); Mean Corpuscular Volume 91.9 fL (81.0-99.0); Platelet Count 380 10^3/uL (150-450); Red Blood Count 4.54 10^6/uL (4.20-5.40); White Blood Count 6.5 10^3/uL (4.0-11.0)
[2025-04-19 14:54] LABS: Alanine Aminotransferase 33 U/L (14-59); Albumin Globulin Ratio 1.1; Albumin Level 4.0 g/dL (3.4-5.0); Alkaline Phosphatase 86 U/L (46-116); Anion Gap 12.7; Aspartate Amino Transferase 24 U/L (15-37); Blood Urea Nitrogen 8.0 mg/dL (7.0-18.0); Calcium 9.3 mg/dL (8.5-10.1); Carbon Dioxide 28.3 mmol/L (21.0-32.0); Chloride 103 mmol/L (98-107); Cholesterol 204 mg/dL (<=200); Estimated GFR (African America >60 (>=60 mL/min/1.73m^2); Estimated GFR (Non-African Ame >60 (>=60 mL/min/1.73m^2); Free T3 2.44 pg/mL (2.18-3.98); Globulin 3.7 g/dL; Glucose 92 mg/dL (74-106); HDL Cholesterol 61 mg/dL (40-60); Potassium 4.0 mmol/L (3.5-5.1); Sodium 140 mmol/L (136-145); Thyroid Stimulating Hormone 0.609 uIU/mL (0.358-3.740); Total Protein 7.7 g/dL (6.4-8.2); Triglycerides 147 mg/dL (<=150); VLDL CHOLESTEROL 29.4 mg/dL
== END 2025-04-19 14:00 | disposition home or self-care (01) ==
PROVIDERS: PCP Family Medicine; Visit Provider Family Medicine
DX: Z00.00 Encounter for general adult medical examination without abnormal findings (principal)
CPT/HCPCS: 36415; 80053; 80061; 83036; 84436; 84443; 84481; 85025